=== PATIENT | male | born 1990 | race Caucasian/White ===

== ENCOUNTER → 2018-09-17 20:25 | Outpatient (CLI) | payer OTHER, MEDICAID, SELFPAY ==
[2018-09-17 21:14] LABS: Alanine Aminotransferase 33 IU/L (21-72); Albumin 4.6 g/dL (3.5-5.0); Albumin Globulin Ratio 1.6 (1.0-2.8); Alkaline Phosphatase 92 U/L (38-126); Aspartate Aminotransferase 37 IU/L (17-59); BUN Creatinine Ratio 18.8 (6-22); Bilirubin Total 0.1 mg/dL (0.2-1.3); Blood Urea Nitrogen 15 mg/dL (9-20); Calcium 9.6 mg/dL (8.4-10.2); Carbon Dioxide 31 mmol/L (22-32); Chloride 101 mmol/L (98-107); Estimated Glomerular Filt Rate > 60.0 mL/min (>60); Globulin 2.8 g/dL (1.7-4.1); Glucose 101 mg/dL (70-100); HEMOLYSIS < 15 (0-50); Potassium 4.1 mmol/L (3.4-5.1); Sodium 141 mmol/L (137-145); Total Protein 7.4 g/dL (6.3-8.2)
[2018-09-17 22:28] LABS: Hep C Virus Ab w/Reflex Quant REACTIVE s/c (NEGATIVE)
[2018-09-22 14:34] LABS: Hepatitis A Antibody Total Nonreactive (Nonreactive)
[2018-09-22 14:51] LABS: Hepatitis B Surf AB Imm QUANT < 5 mIU/mL (> 9)
== END ==
PROVIDERS: Family Provider Family Medicine; Visit Provider Nurse Practitioner Family
DX: Z51.81 Encounter for therapeutic drug level monitoring (principal); F11.20 Opioid dependence, uncomplicated
CPT/HCPCS: 36415; 80053; 86317; 86708; 86803; 87522

== ENCOUNTER 2019-03-13 14:18 | Emergency (ER) | payer OTHER, MEDICAID, SELFPAY ==
[2019-03-13 14:24] VITALS: BP 138/85; PULSE 88; RESP 18; TEMP 36.7; O2SAT 100
--- NOTE | 2019-03-13 14:36 | DI.US.S_ITS ---
PROCEDURE: US EXTREMITY NONVASC UPPER LT INDICATIONS: LEFT UPPER ARM LUMP; POSSIBLE ABSCESS TECHNIQUE: Real-time scanning was performed of the left upper arm, with image documentation. COMPARISON: None. FINDINGS: There is a poorly defined fluid collection seen involving the upper arm at the area of clinical concern that measures approximate 6.1 x 2.6 x 3.8 cm. Mild increased surrounding vascularity can be seen. IMPRESSION: Poorly defined fluid collection with increased vascularity representing an early abscess versus late phlegmon at the area of clinical concern. Dictated by: Frank Roman M.D. on 03/13/2019 at 15:20 Approved by: Frank Roman M.D. on 03/13/2019 at 15:22
--- NOTE | 2019-03-13 16:04 | ED.SKABFB ---
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 She denies any recent injection. He says he used to inject there and there was previously an old abscess about a month ago who was given antibiotics and it went away. However over the last few days he has had increasing swelling and pain. He denies fever chills numbness or tingling in his hand. MD complaint: abscess/boil Location: LUE Quality: aching Pain Consistency: constant Relieving factors: none Related Data Previous Rx's Medication Instructions Recorded sulfamethoxazole-trimethoprim 1 tab PO BID #20 tab 03/13/19 [Bactrim DS] Allergies Allergy/AdvReac Type Severity Reaction Status Date / Time neomycin Allergy Severe Rash Verified 03/13/19 14:28 Review of Systems Review of Systems Narrative: GENERAL: Denies chills,fever HEENT: Denies throat pain RESPIRATORY: Denies dyspnea, cough, wheezing CARDIOVASCULAR: Denies chest pain, palpitations GASTROINTESTINAL: Denies nausea, vomiting MUSCULOSKELETAL: Denies extremity pain, injury SKIN: See HPI NEUROLOGIC: Denies weakness, dizziness, headache, numbness 8 point review of systems is negative except for those stated above and HPI Patient History Medical History Substance abuse (Acute) Social History Smoking Status: Current every day smoker Smoking Status: Current every day smoker alcohol intake frequency: 0-2 drinks per day Substance Use Type: former substance user Exam Initial Vital Signs Initial Vital Signs: Vital Signs Temperature 98.1 F 03/13/19 14:24 Pulse Rate 88 03/13/19 14:24 Respiratory Rate 18 03/13/19 14:24 Blood Pressure 138/85 03/13/19 14:24 Pulse Oximetry 100 03/13/19 14:24 GENERAL: Well-appearing, well-nourished and in no acute distress. CARDIOVASCULAR: peripheral pulses in tact, cap refill <2 sec RESPIRATORY: No respiratory distress, speaks in full sentences without difficulty EXTREMITIES: Normal range of motion, no clubbing or edema. Neurovascularly intact NEUROLOGICAL: Cranial nerves II through XII grossly intact. Normal gait and speech. SKIN: Left deltoid 5 cm x 6 cm swelling no erythema fluctuation tender to touch Procedures Abscess I/D I&D #1: Site: upper extremity Side (if applicable): left Local Anesthetic: lidocaine 2% and with epi Amount of anesthesia used (mL): 8 Technique: incised with #11 blade Amount of fluid expressed (mL): 15 Irrigation: No Packing used?: none Complications: pain and bleeding Course Orders Ordered: ED Orders 03/13/19 14:36 US extremity nonvasc upper lt Stat 03/13/19 16:40 Wound Culture and Gram Stain Stat Discontinued Medications Lidocaine/Epinephrine (Xylocaine 2% W/Epi) 20 ml INJ INTRA-OP ONE Stop: 03/13/19 16:10 Last Admin: 03/13/19 16:18 Dose: 20 ml Documented by: ALKA Trimethoprim/Sulfamethoxazole (Bactrim Ds Prepack) 1 bottle MISC SEEINSTR ONE Stop: 03/13/19 17:16 Vital Signs Vital signs: Vital Signs - 8 hr 03/13/19 14:24 03/13/19 17:33 03/13/19 17:52 Temperature 98.1 F Pulse Rate 88 91 H 85 Respiratory Rate 18 16 16 Blood Pressure 138/85 132/86 Blood Pressure [Right Arm] 130/74 Pulse Oximetry 100 98 100 MDM - Skin/Abscess/Foreign Bdy MDM Narrative Medical decision making narrative: Patient is not febrile or tachycardic. Significant amount fluid drain from left arm. Started on antibiotics. Discharge Plan Departure Patient Disposition: Home Clinical Impression: Abscess of skin or subcutaneous tissue Qualifiers: Site of cutaneous abscess: extremity Site of cutaneous abscess of extremity: upper extremity Laterality: left Qualified Code(s): L02.414 - Cutaneous abscess of left upper limb Discharge Date/Time: 03/13/19 17:52 Instructions: DI for Skin Abscess Activity Restrictions/Additional Instructions: *You have been diagnosed with left arm abscess *What to do: Expect to have some drainage over the area. Keep area clean and dry with soap and water *Continue to take medications as directed Bactrim 1 tablet twice a day for 10 days *Follow up with your primary care provider in 2-3 days *Return to ER if you should have increasing redness pus swelling drainage or any new, worsening or concerning symptoms Prescriptions: New sulfamethoxazole-trimethoprim [Bactrim DS] 800-160 mg tablet 1 tab PO BID Qty: 20 RF: 0 Referrals: Garima Castillo ARNP [Primary Care Provider] -
[2019-03-13] MEDS: LIDOCAINE 2% W/EPI INJ 20 ML INJ (16:18)
[2019-03-13 17:33] VITALS: BP 130/74; PULSE 91; RESP 16; O2SAT 98
[2019-03-13 17:52] VITALS: BP 132/86; PULSE 85; RESP 16; O2SAT 100
== END 2019-03-13 17:52 | disposition home or self-care (01) ==
PROVIDERS: Emergency Provider Emergency Medicine; PCP Nurse Practitioner Family
DX: L02.414 Cutaneous abscess of left upper limb (principal)
CPT/HCPCS: 10060; 76882; 87070; 87075; 87077; 87205; 99283

== ENCOUNTER 2019-07-20 11:24 | Emergency (ER) | payer OTHER, MEDICAID, SELFPAY ==
[2019-07-20 11:38] VITALS: BP 120/69; PULSE 82; RESP 12; TEMP 36.3; O2SAT 100
--- NOTE | 2019-07-20 11:43 | DI.RAD.S_ITS ---
PROCEDURE: XR FINGER LT MIN 2V INDICATIONS: possible foreign body/ infection in left pinky finger TECHNIQUE: AP hand and lateral view of the left fifth digit. COMPARISON: None. FINDINGS: Bones: No fractures or dislocations. No suspicious bony lesions. Soft tissues: No suspicious soft tissue calcifications. Mild proximal fifth digit soft tissue swelling. No visible foreign body. No soft tissue gas. IMPRESSION: Fifth digit soft tissue swelling without visible foreign body or underlying fracture. Dictated by: Suzette Fuller M.D. on 07/20/2019 at 12:17 Approved by: Suzette Fuller M.D. on 07/20/2019 at 12:18
--- NOTE | 2019-07-20 13:43 | ED_ITS ---
HPI - Skin/Abscess/Foreign Bdy <JOYCE Feldman - Last Filed: 07/20/19 14:48> General Chief complaint: Skin/Abscess/Foreign Body Stated complaint: Needs antibiotics for left pinky finger. (sliver) Time Seen by Provider: 07/20/19 13:24 Source: patient Mode of arrival: Ambulatory Limitations: no limitations History of Present Illness HPI narrative: The patient is a 29-year-old male current smoker history of IV drug use who presents with a chief complaint of ?I think I have an infection in my finger.He states that he had a splinter which he removed. He states that since he has had redness and swelling from where he removed the sliver. He denies any fevers nausea vomiting or diarrhea. He states that happened in his left hand. He states he has full range of motion, though some swelling. States that his tetanus was recently updated. Related Data Previous Rx's Medication Instructions Recorded sulfamethoxazole-trimethoprim 1 tab PO BID #20 tab 03/13/19 [Bactrim DS] cephalexin 500 mg PO QID 7 Days #28 cap 07/20/19 sulfamethoxazole-trimethoprim 1 tab PO BID 7 Days #14 tab 07/20/19 Allergies Allergy/AdvReac Type Severity Reaction Status Date / Time neomycin Allergy Severe Rash Verified 07/20/19 11:41 Review of Systems <JOYCE Feldman - Last Filed: 07/20/19 14:48> Review of Systems Narrative: GENERAL: Denies chills, fatigue, malaise, fever, sweats. HEENT: Denies sinus pain, ear pain, sore throat, difficulty swallowing, dizziness. RESPIRATORY: Denies dyspnea, cough, wheezing, hemoptysis, sputum. CARDIOVASCULAR: Denies chest pain, palpitations, orthopnea, edema, GASTROINTESTINAL: Denies nausea, vomiting, abdominal pain, diarrhea, constipation, melena. : Denies dysuria, frequency, incontinence, hematuria, urinary retention. MUSCULOSKELETAL: See HPI SKIN: See HPI NEUROLOGIC: Denies weakness, headache, numbness, change in speech, confusion, seizures, incoordination. PSYCHIATRIC: No concerning psychosocial issues. 12 point review of systems is negative except for those stated above Patient History <JOYCE Feldman - Last Filed: 07/20/19 14:48> Medical History (Updated 07/20/19 @ 13:48 by JOYCE Feldman) Encounter for monitoring Suboxone maintenance therapy (Acute) Substance abuse (Acute) Social History Smoking Status: Current every day smoker Smoking Status: Current every day smoker alcohol intake frequency: 0-2 drinks per day Substance Use Type: former substance user Exam <JOYCE Feldman - Last Filed: 07/20/19 14:48> Narrative Exam Narrative: GENERAL: This is a well-nourished, well-developed patient, in no acute distress HEAD: Atraumatic. Normocephalic. No temporal or scalp tenderness. EYES: Pupils equal round and reactive. Extraocular motions intact. No scleral icterus. No injection or drainage. ENT: Nose without bleeding, purulent drainage or septal hematoma. Throat without erythema, tonsillar hypertrophy or exudate. Uvula midline. Airway patent. NECK: Trachea midline. No JVD or lymphadenopathy. Supple, nontender, no meningeal signs. CARDIOVASCULAR: Regular rate and rhythm RESPIRATORY: Clear to auscultation. Breath sounds equal bilaterally. No wheezes, rales, or rhonchi. No cough. No increased respiratory effort. No accessory muscle use. GASTROINTESTINAL: Abdomen soft, non-tender, nondistended. No hepato- splenomegaly, or palpable masses. No guarding. EXTREMITIES: Full range of motion noted left 5th digit. Able to flex and extend against resistance. Skin exam is noted. Capillary refill less than 2 seconds. BACK: Nontender without deformity or crepitance. No flank tenderness. NEURO: AOx3. SKIN: 2 x 2 cm surrounding erythema on left 5th digit. Small puncture kirby middle of left middle phalanx lateral aspect. No palpable fluctuance or abscess. No drainage. Initial Vital Signs Initial Vital Signs: Vital Signs Temperature 97.3 F L 07/20/19 11:38 Pulse Rate 82 07/20/19 11:38 Respiratory Rate 12 07/20/19 11:38 Blood Pressure 120/69 07/20/19 11:38 Pulse Oximetry 100 07/20/19 11:38 <Yuriy Cornejo DO - Last Filed: 07/20/19 20:04> Initial Vital Signs Initial Vital Signs: Vital Signs Temperature 97.3 F L 07/20/19 11:38 Pulse Rate 82 07/20/19 11:38 Respiratory Rate 12 07/20/19 11:38 Blood Pressure 120/69 07/20/19 11:38 Pulse Oximetry 100 07/20/19 11:38 Course <OJYCE Feldman - Last Filed: 07/20/19 14:48> Orders Ordered: ED Orders 07/20/19 11:43 XR finger LT min 2V Stat Vital Signs Vital signs: Vital Signs - 8 hr 07/20/19 11:38 Temperature 97.3 F L Pulse Rate 82 Respiratory Rate 12 Blood Pressure 120/69 Pulse Oximetry 100 <Yuriy Cornejo DO - Last Filed: 07/20/19 20:04> Orders Ordered: ED Orders 07/20/19 11:43 XR finger LT min 2V Stat Vital Signs Vital signs: Vital Signs - 8 hr 07/20/19 11:38 Temperature 97.3 F L Pulse Rate 82 Respiratory Rate 12 Blood Pressure 120/69 Pulse Oximetry 100 MDM - Skin/Abscess/Foreign Bdy <JOYCE Feldman - Last Filed: 07/20/19 14:48> Differential Diagnosis Differential diagnosis: Likely abscess of skin or subcutaneous tissue, cellulitis, insect bites and impetigo Imaging Data Extremity x-ray #1: Radiologist's Impression: [address] [place] [address] XRay Report Signed Patient: Jono Cantrell TMR#: [id number] : 1990Acct:[id number] Age/Sex: 29 / MDate of Service: 07/20/19 Loc: ED Accession Number: [id number] Procedure: XR finger LT min 2V Ordering Provider: Yuriy Cornejo D.O. PROCEDURE: XR FINGER LT MIN 2V INDICATIONS: possible foreign body/ infection in left pinky finger TECHNIQUE: AP hand and lateral view of the left fifth digit. COMPARISON: None. FINDINGS: Bones: No fractures or dislocations. No suspicious bony lesions. Soft tissues: No suspicious soft tissue calcifications. Mild proximal fifth digit soft tissue swelling. No visible foreign body. No soft tissue gas. IMPRESSION: Fifth digit soft tissue swelling without visible foreign body or underlying fracture. Dictated by: Suzette Fuller M.D. on 07/20/2019 at 12:17 Approved by: Suzette Fuller M.D. on 07/20/2019 at 12:18 [facility] Narrative Medical decision making narrative: The patient is a 29-year-old male who presents with a chief complaint of a possible infection in his left 5th digit. He denies any signs of systemic illness, appears well and nontoxic and is afebrile in the emergency department. X-ray shows no visible foreign body or acute fracture. No palpable fluctuance or abscess on exam. Exam correlates with cellulitis. Full range of motion noted to finger with good capillary refill. Encouraged at length follow up with primary care provider in the next few days, which he states he is able to do. Will start on Keflex and Bactrim given history of IV drug use. Encouraged taking it with probiotic or yogurt. Patient has no questions or concerns upon discharge and states understanding return precautions of any acute concerns, circulation, signs of systemic illness and follow up with primary care provider. Discharge Plan Departure Patient Disposition: Home Clinical Impression: Cellulitis Qualifiers: Site of cellulitis: extremity Site of cellulitis of extremity: finger Laterality: left Qualified Code(s): L03.012 - Cellulitis of left finger Discharge Date/Time: 07/20/19 14:00 Instructions: DI for Cellulitis -- Adult, How To Perform RICE (Rest, Ice, Compress, Elevate) Activity Restrictions/Additional Instructions: Thank you for trusting us with your care today As discussed, your x-ray does not show any foreign body or fracture. I have placed you on 2 different antibiotics to treat your infection. Please take this with yogurt or probiotic. Please follow-up with primary care provider in the next few days. Please come back to emergency department for any acute concerns such as lack of circulation to the tip of your finger, decreased range of motion, signs of worsening such as fever, vomiting, extending redness. Prescriptions: New cephalexin 500 mg capsule 500 mg PO QID 7 Days Qty: 28 RF: 0 sulfamethoxazole-trimethoprim 800-160 mg tablet 1 tab PO BID 7 Days Qty: 14 RF: 0 No Action sulfamethoxazole-trimethoprim [Bactrim DS] 800-160 mg tablet 1 tab PO BID Qty: 20 RF: 0 Referrals: Garima Castillo ARNP [Primary Care Provider] - <Yuriy Cornejo DO - Last Filed: 07/20/19 20:04> Cosign ED Attending Cosignature Attestation: I was immediately available in the department for consultation. This documentation has been reviewed and I agree with assessment and plan. Supervised by Yuriy Cornejo DO
== END 2019-07-20 14:00 | disposition home or self-care (01) ==
PROVIDERS: Emergency Provider Nurse Practitioner Family; PCP Nurse Practitioner Family
DX: L03.012 Cellulitis of left finger (principal)
CPT/HCPCS: 73140; 99283